=== PATIENT | male | born 1990 | race Caucasian/White ===

== ENCOUNTER 2025-08-21 17:08 | Emergency (ER) | payer OTHER ==
[~2025-08-21] VITALS: Ht 177.8 cm; Wt 72.6 kg
[2025-08-21] MEDS ORDERED: OxyCODONE 5 mg/Acetamin 325 mg TABLET PO ONE (18:00)
[2025-08-21] MEDS ORDERED: RX Prepack 6 Tabs Oxycodone 5mg UD ONE (18:00)
[2025-08-21] MEDS ORDERED: CEPH500 PO ×2 (18:01→18:11)
[2025-08-22] MEDS ORDERED: SULTRIDS PO (09:14)
== END 2025-08-21 18:20 | disposition home or self-care (01) ==
LOC: ER 17:08
DX: L03.211 Cellulitis of face (principal)
CPT/HCPCS: 99282; A9270

== ENCOUNTER 2025-08-22 08:30 | Inpatient (IN) | payer OTHER ==
[~2025-08-22] VITALS: Ht 172.7 cm; Wt 67.1 kg
[~2025-08-22 08:30] MED LIST: CEPH500 PO
[2025-08-22] MEDS ORDERED: SULTRIDS PO (09:14)
[2025-08-22 09:44] LABS: BASOPHILS ABSOLUTE AUTO 0.08 K/mm3 (0.00-0.23); BASOPHILS PERCENT AUTO 1 % (0-2); EOSINOPHILS ABSOLUTE AUTO 0.25 K/mm3 (0.00-0.68); EOSINOPHILS PERCENT AUTO 2 % (0-6); Hematocrit 41.3 % (37.0-53.0); Hemoglobin 14.2 g/dL (13.5-17.5); IMMATURE GRAN ABSOLUTE AUTO 0.03 K/mm3 (0.00-0.10); IMMATURE GRAN PERCENT AUTO 0 % (0-1); LYMPHOCYTES ABSOLUTE AUTO 1.00 K/mm3 (0.84-5.20); LYMPHOCYTES PERCENT AUTO 9 % (21-46); MONOCYTES ABSOLUTE AUTO 0.79 K/mm3 (0.16-1.47); MONOCYTES PERCENT AUTO 7 % (4-13); Mean Corpuscular HGB Conc 34.4 g/dL (31.5-36.5); Mean Corpuscular Volume 93 fL (80-100); NEUTROPHILS ABSOLUTE AUTO 9.67 K/mm3 (1.96-9.15); NEUTROPHILS PERCENT AUTO 82 % (41-73); NRBC ABSOLUTE 0.00 K/mm3 (0.00-0.02); NRBC Auto 0.0 /100 WBC (0.0-0.2); Platelet Count 229 K/mm3 (150-400); RDW Coefficient Variation 12.5 % (11.7-14.2); RDW Standard Deviation 42.8 fL (35.1-46.3)
[2025-08-22] MEDS ORDERED: NS 1,000 ML IV SCH (09:50)
[2025-08-22] MEDS ORDERED: Ketorolac Tromethamine 15mg Vial IV ONE (09:50)
[2025-08-22] MEDS ORDERED: Ondansetron HCl 2 MG / ML 2ML Vial IV ONE (09:50)
[2025-08-22 10:03] LABS: Alanine Aminotransfer (ALT/SGP 27.0 U/L (12-78); Albumin, Blood 3.8 g/dL (3.4-5.0); Albumin/Globulin Ratio 0.8 (0.8-1.8); Anion Gap 6.0 mmol/L (3-11); Aspartate Aminotrans (AST/SGOT 18.0 U/L (12-37); Bilirubin, Total 0.8 mg/dL (0.1-1.0); Blood Urea Nitrogen 5.0 mg/dL (8-24); CO2, Blood 30.0 mmol/L (21-32); Calcium, Blood 9.2 mg/dL (8.5-10.1); Chloride, Blood 103.0 mmol/L (98-108); Creatinine, Blood 0.75 mg/dL (0.60-1.20); Globulin, Blood 4.5 g/dL (2.2-4.0); Glucose, Blood 124.0 mg/dL (70-99); Potassium, Blood 3.5 mmol/L (3.5-5.5); Sodium, Blood 135.0 mmol/L (136-145); Total Protein, Blood 8.3 g/dL (6.4-8.2)
[2025-08-22] MEDS ORDERED: Clindamycin 600mg in D5W 50 ML IV ONE (11:50)
[2025-08-22] MEDS ORDERED: Clindamycin 900mg in D5W 50ML 50 ML IV ONE (11:55)
[2025-08-22] MEDS ORDERED: FentaNYL Citrate 50 MCG/ML 2 ML Injection IV ONE (13:30)
[2025-08-22] MEDS ORDERED: FLU VACC TS2025-26(6MOS UP)/PF 45 MCG/0.5 ML SYRINGE IM SCH (14:30)
[2025-08-22] MEDS ORDERED: NS 1,000 ML IV ONE (14:40)
[2025-08-22] MEDS ORDERED: Ketorolac Tromethamine 30mg Vial IV PRN (15:10)
[2025-08-22 18:11] VITALS: BP 135/81
[2025-08-22] MEDS ORDERED: Clindamycin 900mg in D5W 50ML 50 ML IV SCH (18:30)
--- NOTE | 2025-08-22 18:42 | NUR ---
ADMIT REPORT RECEIVED FROM SAMI MYERS. PT ARRIVED VIA W/C ACCOMPANIED BY JUANY Barba. PT ALERT AND OREINTED. INDEPENDENT. CHANGED CLOTHES. FAMILY AT BEDSIDE. IVF INFUSING PER ORDER. HE REQUESTED SOFT FOOD. BROUGHT HIM [place] AND CHEESE. CARE ONGOING.
[2025-08-22 19:39] VITALS: BP 127/69
--- NOTE | 2025-08-23 04:36 | NUR ---
SHIFT SUMMARY: PT AOX4 IND IN THE ROOM. CALLS APPROPRIATELY AND ABLE TO MAKE NEEDS KNOWN. HAD A LOW GRADE FEVER ~99 AND WAS IN SOME PAIN, MEDICATED PER EMR. VITAL SIGNS STABLE AND PT TOLERATING MEDICATIONS WELL. NO ACUTE OVERNIGHT EVENTS. PT IN BED SLEEPING, BED IN LOWEST POSITION, CALL LIGHT IN REACH. CONTINUING CARE.
[2025-08-23 05:14] LABS: Hematocrit 39.2 % (37.0-53.0); Hemoglobin 13.2 g/dL (13.5-17.5); Mean Corpuscular HGB Conc 33.7 g/dL (31.5-36.5); Mean Corpuscular Volume 93 fL (80-100); NRBC ABSOLUTE 0.00 K/mm3 (0.00-0.02); NRBC Auto 0.0 /100 WBC (0.0-0.2); Platelet Count 199 K/mm3 (150-400); RDW Coefficient Variation 12.4 % (11.7-14.2); RDW Standard Deviation 42.8 fL (35.1-46.3)
[2025-08-23 05:18] VITALS: BP 129/79
[2025-08-23 05:39] LABS: Anion Gap 6.0 mmol/L (3-11); Blood Urea Nitrogen 5.0 mg/dL (8-24); CO2, Blood 28.0 mmol/L (21-32); Calcium, Blood 9.0 mg/dL (8.5-10.1); Chloride, Blood 105.0 mmol/L (98-108); Creatinine, Blood 0.7 mg/dL (0.60-1.20); Glucose, Blood 105.0 mg/dL (70-99); Potassium, Blood 3.6 mmol/L (3.5-5.5); Sodium, Blood 135.0 mmol/L (136-145)
[2025-08-23 07:19] VITALS: BP 127/75
[2025-08-23] MEDS ORDERED: Enoxaparin 40 MG/0.4 ML SYR SC SCH (09:00)
[2025-08-23] MEDS ORDERED: Bupivacaine 0.5% Inj 10 ML Vial IM PRN (15:35)
[2025-08-23] MEDS ORDERED: Lidocaine 2%-Epineph 1:100000 20 ML MDV INJ SCH (15:40)
[2025-08-23] MEDS ORDERED: FentaNYL Citrate 50 MCG/ML 2 ML Injection IV PRN (15:40)
[2025-08-23 16:34] VITALS: BP 125/86
--- NOTE | 2025-08-23 19:22 | NUR ---
SHIFT SUMMARY PATIENT A/OX4, ABLE TO MAKE NEEDS KNOWN. PLEASANT AND COOPERATIVE WITH CARE. IV ABX INFUSED PER JAN. PATIENT STATES "NEW POCKETS" DEVELOPING TO RIGHT SIDE UPPER LIP. DR. LUCAS CAME TO BEDSIDE TO ASSESS AND STATED WOULD BENEFIT FROM DR. GUTHRIE ASSESSMENT. DR. GUTHRIE NOTIFIED AND MULTIPLE NEW ORDERS RECIEVED TO PREPARE FOR BEDSIDE I&D THIS EVENING AROUND 1900. WHEN DR. GUTHRIE CAME TO BEDSIDE THIS EVENIGNG HE STATED I&D NOT NECESSARY AT THIS TIME, DRESSING CHANGED BY MD. PATIENT TOELRATED WELL. MD STATES TO REASSESS WOUND TOMORROW AND HOPEFUL FOR DISCHARGE. NO OTHER CONCERNS AT THIS TIME, BEDSIDE SHIFT REPORT COMPLETED WITH TILE LAYER DRAINAGE RN.
[2025-08-23 20:03] VITALS: BP 130/75
[2025-08-23] MEDS ORDERED: NS 250 ML IV PRN (23:20)
[2025-08-24 04:20] VITALS: BP 127/78
[2025-08-24 04:50] LABS: Hematocrit 36.8 % (37.0-53.0); Hemoglobin 12.3 g/dL (13.5-17.5); Mean Corpuscular HGB Conc 33.4 g/dL (31.5-36.5); Mean Corpuscular Volume 93 fL (80-100); NRBC ABSOLUTE 0.00 K/mm3 (0.00-0.02); NRBC Auto 0.0 /100 WBC (0.0-0.2); Platelet Count 218 K/mm3 (150-400); RDW Coefficient Variation 12.3 % (11.7-14.2); RDW Standard Deviation 42.4 fL (35.1-46.3)
[2025-08-24 05:12] LABS: Anion Gap 5.0 mmol/L (3-11); Blood Urea Nitrogen 8.0 mg/dL (8-24); CO2, Blood 30.0 mmol/L (21-32); Calcium, Blood 9.1 mg/dL (8.5-10.1); Chloride, Blood 106.0 mmol/L (98-108); Creatinine, Blood 0.71 mg/dL (0.60-1.20); Glucose, Blood 103.0 mg/dL (70-99); Potassium, Blood 3.8 mmol/L (3.5-5.5); Sodium, Blood 137.0 mmol/L (136-145)
--- NOTE | 2025-08-24 05:39 | NUR ---
SHIFT SUMMARY: PT AOX4 IND IN THE ROOM. CALLS APPROPRAITELY AND ABLE TO MAKE NEEDS KNOWN. PAIN CONTROLED WELL WITH TORADOL. DR GUTHRIE SAW PT AT SHIFT CHANGE AND CHANGED THE BANDAGE. PT HOPEFUL TO DISCHARGE TODAY. TOLERATING MEDICATIONS WELL, NO ACUTE OVERNIGHT EVENTS. PT IN BED SLEEPING, BED IN LOWEST POSITION, CALL LIGHT IN REACH. CONTINUING CARE.
[2025-08-24 07:18] VITALS: BP 121/71
--- NOTE | 2025-08-24 14:58 | NUR ---
DR GUTHRIE AT THE BEDSIDE TO EVAL WOUND AND CHANGED PACKING- INSTRUCTIONS GIVEN TO PT FOR DAILY CHANGES AT HOME UNTIL F/U IN ONE WEEK. WOUND HEALING WELL MIN EXUDATE, NO SS OF INFECTION, PT SUPPLIED WITH AMPLE DRESSING CHANGE SUPPLIES AND KNOWS TO KEEP AREA CLEAN AND DRY. DR GUTHRIE SPOKE WITH DR LUCAS FOR DC ORDERS
[2025-08-24] MEDS ORDERED: CLIN300 PO (15:25)
[2025-08-24] MEDS ORDERED: VISBIOME 112.51 EACH PO (15:26)
--- NOTE | 2025-08-24 16:25 | NUR ---
PT DISCHARGED 1536 WITH DC INTRUCTIONS AND SUPPLIES FOR DRESSING CHANGES. STATE UNDERSTANDING OF WOUND CARE- SENT HOME WITH BELONGINGS. AMBULATED WITH AND CHILD TO CAR, REFUSED WHEELCHAIR.
== END 2025-08-24 15:50 | disposition home or self-care (01) | DRG 137 ==
LOC: ER 08:30 → MEDS 08:31
PROVIDERS: Family Medicine; Physician Assistant; ADMIT Internal Medicine
PROC: 3E03329 Introduction of Other Anti-infective into Peripheral Vein, Percutaneous Approach (ICD-10-PCS; principal; 2025-08-22)
PROC: 0C900ZZ Drainage of Upper Lip, Open Approach (ICD-10-PCS; 2025-08-22)
DX: K13.0 Diseases of lips (principal); E87.1 Hypo-osmolality and hyponatremia; Z79.899 Other long term (current) drug therapy; M27.2 Inflammatory conditions of jaws; Z28.9 Immunization not carried out for unspecified reason
CPT/HCPCS: 10060; 36415; 70487; 80048; 80053; 85025; 85027; 96361-59; 96365-59; 96366; 96375-59; 96376; 96376-59; 99285-25; G0378; J1885; J2405; J3010; J7030; J7050; Q9967